=== PATIENT | female | born 1995 | race Caucasian/White ===

== ENCOUNTER 2018-03-24 17:46 | Emergency (ER) | payer BC ==
--- NOTE | 2018-03-24 18:36 | EDPHY ---
H & P Stated Complaint: coughing brown mucus x 3 days, sore thrt, body aches - Personal History LMP (Females 10-55): 8-14 Days Ago - Medical/Surgical History Hx Asthma: No Hx Chronic Respiratory Disease: No Hx Diabetes: No Hx Cardiac Disease: No Hx Renal Disease: No Hx Cirrhosis: No Hx Alcoholism: No Hx HIV/AIDS: No Hx Splenectomy or Spleen Trauma: No Other PMH: freq strep - Social History Smoking Status: Current some day smoker Time Seen by Provider: 03/24/18 18:16 HPI/ROS: CHIEF COMPLAINT: URI symptoms x3 days HISTORY OF PRESENT ILLNESS: 22-year-old immunocompetent female with no influenza vaccination complaining of 3 days of URI symptoms including, sinus congestion, postnasal drainage, sore throat, intermittently productive cough, myalgias. Denies: Abdominal pain, chest pain, dyspnea, rash, chest pain, nuchal rigidity, headache, international travel. REVIEW OF SYSTEMS: 10 systems reviewed and negative with the exception of the elements mentioned in the history of present illness PAST MEDICAL & SURGICAL HISTORY: No pertinent medical or surgical history . No influenza vaccination this season SOCIAL HISTORY:No tobacco abuse PHYSICAL EXAM (Prior to examination, patient consented to physical exam, hands were washed and my usual and customary physical exam procedures followed) 1) GENERAL: Well-developed, well-nourished, alert and oriented. Appears to be in no acute distress. 2) HEAD: Normocephalic, atraumatic 3) HEENT: Pupils equal, round, reactive to light bilaterally. Sclera anicteric. Nasopharynx: Congestion., oropharynx, clear, no lesions. Moist Mucous membranes. Ears bilaterally with normal tympanic membranes. No evidence of otitis media otitis externa 4) NECK: Full range of motion, no meningeal signs. No adenopathy 5) LUNGS: Clear auscultation bilaterally, no wheezes, no rhonchi, no retractions. 6) HEART: Regular rate and rhythm, no murmur, no heave, no gallop. 7) ABDOMEN: No guarding, no rebound, no focal tenderness, negative McBurney's, negative Medina's, negative Rovsing's, negative peritoneal sign, 8) MUSCULOSKELETAL: Moving all extremities, no focal areas of tenderness, no obvious trauma. No peripheral edema or discoloration. 9) BACK: No CVA tenderness, no midline vertebral tenderness, no fluctuance, no step-off, no obvious trauma, no visual or palpable abnormality. 10) SKIN: No rash, no petechiae. 11) Psychiatric: Patient is oriented X 3, there is no agitation. DIFFERENTIAL DIAGNOSIS: In no particular order including but not limited to influenza, bronchitis, pneumonia (Ottoniel Stern) Constitutional: Initial Vital Signs Temperature (C) 37.0 C 03/24/18 17:50 Heart Rate 109 H 03/24/18 17:50 Respiratory Rate 16 03/24/18 17:50 Blood Pressure 129/90 H 03/24/18 17:50 O2 Sat (%) 98 03/24/18 17:50 O2 Delivery Mode Nasal Cannula Allergies/Adverse Reactions: No Known Allergies Allergy (Unverified 03/24/18 17:49) Home Medications: Medication Instructions Recorded Albuterol [Proventil Inhaler HFA 1 - 2 puffs IH Q4PRN PRN #1 mdi 03/24/18 (*)] Benzonatate [Tessalon Pearles (RX)] 200 mg PO TID PRN #15 cap 03/24/18 Ipratropium 0.06% Nasal [Atrovent 2 sprays EACHNARE QID #1 mdi 03/24/18 0.06% Nasal (RX)] Sertraline HCl 03/24/18 Vyvanse 03/24/18 Medical Decision Making ED Course/Re-evaluation: I think the patient's symptoms are more than likely secondary to viral etiology. For these reasons, I do not feel antibiotics are currently indicated. In addition, I do not identify indication for chest x-ray as the patient's lungs are clear bilaterally, has a normal pulse ox, speaking full sentences, no signs of respiratory distress. The patient understands that this diagnosis is provisional and can never be 100% accurate. Usual and customary warnings were given concerning the clinical impression and all the patient's questions were answered. The patient was instructed to return to the emergency department should her symptoms worsen or return, or develop any new symptoms, otherwise to followup as directed in discharge instructions. Care of patient under supervision of secondary supervising physician Dr Aaron . (Leena,D Amy) Other Provider: The patient was evaluated and managed by the [facility]. My co- signature indicates that I have reviewed this chart and I agree with the findings and plan of care as documented. I am the secondary supervising physician. (Sada Aaron) Departure - Departure Disposition: Home, Routine, Self-Care Clinical Impression: Upper respiratory infection Condition: Good Instructions: Upper Respiratory Infection (ED) Additional Instructions: Return to the emergency department immediately for change in breathing habits, change in voice, change in swallowing habits, change in mental status, or any other symptoms that concern you. Referrals: [facility] [Clinic] - 3-4 days, if not improved Stand Alone Forms: School Excuse Prescriptions: Albuterol [Proventil Inhaler HFA (*)] 1 - 2 puffs IH Q4PRN PRN #1 mdi PRN Reason: Cough, Moderate Benzonatate [Tessalon Pearles (RX)] 200 mg PO TID PRN #15 cap PRN Reason: Cough, Moderate Ipratropium 0.06% Nasal [Atrovent 0.06% Nasal (RX)] 2 sprays EACHNARE QID #1 mdi
[2018-03-24 19:11] VITALS: BP 118/76
== END 2018-03-24 19:10 | disposition home or self-care (01) ==
DX: J06.9 Acute upper respiratory infection, unspecified (principal); D84.9 Immunodeficiency, unspecified; F17.200 Nicotine dependence, unspecified, uncomplicated